=== PATIENT | female | born 1990 ===

== ENCOUNTER 2022-12-01 12:09 | Outpatient (CLI) | payer OTHER | END 2022-12-01 13:25 | disposition home or self-care (01) | LOC: PRENATAL 12:09 | PROVIDERS: ATTEND Obstetrics & Gynecology Maternal & Fetal Medicine | DX: O36.80X0 Pregnancy with inconclusive fetal viability, not applicable or unspecified (principal); Z36 Encounter for antenatal screening of mother; Z3A.12 12 weeks gestation of pregnancy ==

== ENCOUNTER 2022-12-24 18:33 | Emergency (ER) | payer OTHER ==
[~2022-12-24] VITALS: Ht 160 cm; Wt 113.4 kg
== END 2022-12-24 23:52 | disposition home or self-care (01) ==
LOC: ER 18:33
DX: O23.42 Unspecified infection of urinary tract in pregnancy, second trimester (principal); N39.0 Urinary tract infection, site not specified; Z3A.16 16 weeks gestation of pregnancy

== ENCOUNTER 2023-01-28 08:05 | Outpatient (CLI) | payer OTHER | END 2023-01-28 09:39 | disposition home or self-care (01) | LOC: PRENATAL 08:05 | PROVIDERS: ATTEND Obstetrics & Gynecology Maternal & Fetal Medicine | DX: O35.9XX0 Maternal care for (suspected) fetal abnormality and damage, unspecified, not applicable or unspecified (principal); O35.3XX0 Maternal care for (suspected) damage to fetus from viral disease in mother, not applicable or unspecified; O99.210 Obesity complicating pregnancy, unspecified trimester; O36.5990 Maternal care for other known or suspected poor fetal growth, unspecified trimester, not applicable or unspecified; Z3A.20 20 weeks gestation of pregnancy ==

== ENCOUNTER 2023-03-03 09:31 | Outpatient (CLI) | payer OTHER | END 2023-03-03 12:31 | disposition home or self-care (01) | LOC: PRENATAL 09:31 | PROVIDERS: ATTEND Obstetrics & Gynecology Maternal & Fetal Medicine | DX: O26.849 Uterine size-date discrepancy, unspecified trimester (principal); O99.210 Obesity complicating pregnancy, unspecified trimester; Z3A.25 25 weeks gestation of pregnancy ==

== ENCOUNTER 2023-04-21 08:21 | Outpatient (CLI) | payer OTHER | END 2023-04-21 10:22 | disposition home or self-care (01) | LOC: PRENATAL 08:21 | PROVIDERS: ATTEND Obstetrics & Gynecology Maternal & Fetal Medicine | DX: O26.849 Uterine size-date discrepancy, unspecified trimester (principal); O36.8199 Decreased fetal movements, unspecified trimester, other fetus; O99.210 Obesity complicating pregnancy, unspecified trimester; O24.419 Gestational diabetes mellitus in pregnancy, unspecified control; Z3A.32 32 weeks gestation of pregnancy ==

== ENCOUNTER 2023-05-20 09:13 | Outpatient (CLI) | payer OTHER | END 2023-05-20 09:58 | disposition home or self-care (01) | LOC: PRENATAL 09:13 | PROVIDERS: ATTEND Obstetrics & Gynecology Maternal & Fetal Medicine | DX: O26.849 Uterine size-date discrepancy, unspecified trimester (principal); O36.8199 Decreased fetal movements, unspecified trimester, other fetus; O99.210 Obesity complicating pregnancy, unspecified trimester; O24.419 Gestational diabetes mellitus in pregnancy, unspecified control; O40.1XX0 Polyhydramnios, first trimester, not applicable or unspecified; O36.60X0 Maternal care for excessive fetal growth, unspecified trimester, not applicable or unspecified; Z3A.36 36 weeks gestation of pregnancy ==

== ENCOUNTER 2023-05-20 13:45 | Inpatient (IN) | payer OTHER ==
[~2023-05-20] VITALS: Ht 160 cm; Wt 123.8 kg
[2023-05-20 14:31] LABS: PH,URINE 6.5 (5.0-8.0); URINE APPEARANCE Clear; URINE BILIRRUBIN Negative (NEGATIVE); URINE BLOOD Negative; URINE COLOR Yellow; URINE GLUCOSE Negative (NEGATIVE); URINE LEUKOCYTE Trace; URINE NITRATE Negative; URINE PROTEIN Trace (NEGATIVE)
[2023-05-20 14:34] LABS: URINE EPITHELIAL CELLS 40.8 uL (0.0-38.8); URINE RBC 7.3 uL (0.0-20.8); URINE WBC 64.3 uL (0.0-23.2)
[2023-05-20 14:40] LABS: HEMATOCRIT 33.3 % (36.0-45.00); HEMOGLOBIN 10.9 g/dL (12.0-15.00); MEAN CELL VOLUME 74.9 fL (80.00-100.00); MEAN CORPUSCULAR HEMOGLOBIN 24.5 pg (27.00-32.0); MEAN CORPUSCULAR HGB CONC 32.7 g/dl (32.0-36.0); PLATELET COUNT 265 K/uL (150-450); RED BLOOD COUNT 4.45 M/uL (4.00-6.00)
[2023-05-20 14:42] LABS: RED CELL DISTRIBUTION WIDTH 17.3 % (11.5-14.5)
[2023-05-20 15:05] LABS: INR 0.94; PARTIAL THROMBOPLASTIN TIME 26.3 SECONDS (22.0-34.0); PROTHROMBIN TIME 9.9 SECONDS (9.0-11.5)
[2023-05-20 15:23] LABS: ALBUMIN 2.8 gm/dL (3.4-5.0); BILIRUBIN TOTAL 0.33 mg/dL (0.3-1.2); CALCIUM 8.8 mg/dL (8.5-10.1); CREATININE SERUM 0.57 mg/dL (0.55-1.02); GFR 123.71; GLOBULINA 3.6 G/DL (2.4-3.5); POTASSIUM 4.06 mEq/L (3.5-5.1); TOTAL PROTEIN 6.4 gm/dL (6.4-8.2)
[2023-05-25] MEDS ORDERED: PRENATE ELITE1 EAC2 PO (10:20)
[2023-05-25] MEDS ORDERED: IRON325 MG PO (10:21)
[2023-05-25] MEDS ORDERED: ADULT LOW DOSE81 M1 PO (10:22)
[2023-05-25 20:01] LABS: HEMATOCRIT 28.7 % (36.0-45.00); HEMOGLOBIN 9.2 g/dL (12.0-15.00); MEAN CELL VOLUME 75.5 fL (80.00-100.00); MEAN CORPUSCULAR HEMOGLOBIN 24.3 pg (27.00-32.0); MEAN CORPUSCULAR HGB CONC 32.2 g/dl (32.0-36.0); PLATELET COUNT 176 K/uL (150-450); RED CELL DISTRIBUTION WIDTH 18.4 % (11.5-14.5)
[2023-05-25 22:11] LABS: HEMATOCRIT 28.7 % (36.0-45.00); MEAN CELL VOLUME 75.6 fL (80.00-100.00); MEAN CORPUSCULAR HGB CONC 32.1 g/dl (32.0-36.0); PLATELET COUNT 186 K/uL (150-450); RED CELL DISTRIBUTION WIDTH 18.2 % (11.5-14.5)
[2023-05-25 22:12] LABS: HEMOGLOBIN 9.2 g/dL (12.0-15.00); MEAN CORPUSCULAR HEMOGLOBIN 24.2 pg (27.00-32.0)
[2023-05-27] MEDS ORDERED: INTEGRA PLUS C1 EACH PO (09:27)
[2023-05-27] MEDS ORDERED: SURFAK240 M1 PO (09:27)
[2023-05-27] MEDS ORDERED: IBU800 MG PO (09:27)
[2023-05-27 11:27] LABS: HEMATOCRIT 24.5 % (36.0-45.00); MEAN CELL VOLUME 76.3 fL (80.00-100.00); MEAN CORPUSCULAR HGB CONC 31.2 g/dl (32.0-36.0); PLATELET COUNT 189 K/uL (150-450); RED BLOOD COUNT 3.21 M/uL (4.00-6.00); RED CELL DISTRIBUTION WIDTH 18.4 % (11.5-14.5)
[2023-05-27 11:53] LABS: ALBUMIN 2.1 gm/dL (3.4-5.0); BILIRUBIN TOTAL 0.3 mg/dL (0.3-1.2); CALCIUM 8.1 mg/dL (8.5-10.1); CREATININE SERUM 0.54 mg/dL (0.55-1.02); GFR 131.68; POTASSIUM 3.79 mEq/L (3.5-5.1); TOTAL PROTEIN 5.1 gm/dL (6.4-8.2)
[2023-05-27 11:56] LABS: MEAN CORPUSCULAR HEMOGLOBIN 23.9 pg (27.00-32.0)
[2023-05-27 11:57] LABS: HEMOGLOBIN 7.7 g/dL (12.0-15.00)
[2023-05-27 12:20] LABS: PH,URINE 6.5 (5.0-8.0); URINE APPEARANCE Clear; URINE BILIRRUBIN Negative (NEGATIVE); URINE BLOOD Moderate; URINE COLOR Yellow; URINE GLUCOSE Negative (NEGATIVE); URINE LEUKOCYTE Trace; URINE NITRATE Negative; URINE PROTEIN Negative (NEGATIVE); URINE UROBILINOGEN 0.2 E.U./dl
[2023-05-27 12:24] LABS: URINE BACTERIA 22.6 uL (0.0-1933); URINE EPITHELIAL CELLS 11.1 uL (0.0-38.8); URINE RBC 169.2 uL (0.0-20.8); URINE WBC 14.3 uL (0.0-23.2)
== END 2023-05-27 13:57 | disposition home or self-care (01) | DRG 788 ==
LOC: O/R 05-25 09:45 → OB/GYN 05-25 13:43
PROVIDERS: Obstetrics & Gynecology; Specialist; ADMIT Student in an Organized Health Care Education/Training Program; ATTEND Student in an Organized Health Care Education/Training Program
PROC: 4A1HXCZ Monitoring of Products of Conception, Cardiac Rate, External Approach (ICD-10-PCS; 2023-05-25)
PROC: 3E033VJ Introduction of Other Hormone into Peripheral Vein, Percutaneous Approach (ICD-10-PCS; 2023-05-25)
PROC: 3E0P7VZ Introduction of Hormone into Female Reproductive, Via Natural or Artificial Opening (ICD-10-PCS; 2023-05-25)
PROC: 10D00Z1 Extraction of Products of Conception, Low, Open Approach (ICD-10-PCS; principal; 2023-05-25 16:30)
DX: O24.12 Pre-existing type 2 diabetes mellitus, in childbirth (principal); O40.3XX0 Polyhydramnios, third trimester, not applicable or unspecified; E11.8 Type 2 diabetes mellitus with unspecified complications; O24.424 Gestational diabetes mellitus in childbirth, insulin controlled; O36.63X0 Maternal care for excessive fetal growth, third trimester, not applicable or unspecified; Z3A.37 37 weeks gestation of pregnancy; Z37.0 Single live birth; Z79.4 Long term (current) use of insulin; Z20.822 Contact with and (suspected) exposure to COVID-19